=== PATIENT | male | born 1980 | race Caucasian/White ===

== ENCOUNTER 2024-01-01 19:28 | Outpatient (CLI) | payer MEDICAID, SELFPAY | END 2024-01-01 19:29 | disposition home or self-care (01) | LOC: AMB 01-07 11:49 | PROVIDERS: Visit Provider Student in an Organized Health Care Education/Training Program | DX: F15.10 Other stimulant abuse, uncomplicated (principal) | CPT/HCPCS: A0425; A0429 ==

== ENCOUNTER 2024-01-01 19:47 | Emergency (ER) | payer MEDICAID, SELFPAY ==
[2024-01-01 19:58] VITALS: BP 109/81; PULSE 88; RESP 18; TEMP 36.6; O2SAT 96; BMI 31.0
--- NOTE | 2024-01-01 20:06 | ED_ITS ---
HPI - General Adult General Chief complaint: Unspecified Complaint, Adult Stated complaint: Substance abuse Time Seen by Provider: 01/01/24 20:05 History of Present Illness HPI narrative: pt at [place] smoking marijuanna and meth. stated he decided to leave so he started walking down the side of the highway, PD saw him walking in dark and stopped him, ems brought him in. pt denies any self harm or SI . pt states he wants help to get out of the drug life and is open to going to detox. 43-year-old man presenting to the emergency department brought by EMS. Was apparently walking along side of the road and reports to me at least that PD had pulled up alongside and he requested to come to the hospital for detox. This is after nursing has told me prior to me seeing him that was declining blood draw and detox although seems interested now again. He does admit to marijuana and meth denying any other substances. Last used tonight. He is interested in ?crisis bed?. I asked him if he has a place to stay and he is unsure. He has been to detox and appears family was number nkechi. He also reports treatment but can not recall when. He says he sometimes attends meetings. Says he could get a sponsor if he needed one. Generally very agreeable in his answers saying ?yeah?. Says he just needs to quit especially meth. Says this is his last time. Otherwise notes himself to be in usual state of health. No complaint of headaches. No chest pain or shortness of breath. No expressions of self-harm or harm to anybody else. In further conversation/questioning, he endorses being released from intermediate 4 weeks ago. He is from the [facility] originally. When I am examining his mouth he does note that his tongue hurts this would correspond with some ulcerations. He does admit to grinding his teeth as well. Related Data Home Medications Medication Instructions Recorded Confirmed acetaminophen PO 01/01/24 albuterol 90 mcg/actuation aerosol mcg inhalation 01/01/24 inhaler buspirone 30 mg tablet 30 mg PO BID 01/01/24 01/01/24 divalproex 500 mg tablet,extended 1,000 mg PO DAILY 01/01/24 01/01/24 release 24 hr (Depakote ER) folic acid 1 mg tablet 1 mg PO DAILY 01/01/24 01/01/24 olanzapine 20 mg tablet 40 mg PO QHS 01/01/24 01/01/24 omeprazole 20 mg capsule,delayed 20 mg PO DAILY 01/01/24 01/01/24 release propranolol 80 mg capsule,24 80 mg PO DAILY 01/01/24 01/01/24 hr,extended release (Inderal LA) venlafaxine 150 mg 300 mg PO QAM 01/01/24 01/01/24 capsule,extended release 24 hr (Effexor XR) Allergies Allergy/AdvReac Type Severity Reaction Status Date / Time haloperidol [From Haldol] AdvReac Verified 01/01/24 20:14 levetiracetam [From Keppra] AdvReac Verified 01/01/24 20:03 Review of Systems Status of ROS: Reports: 6 or more systems reviewed and unremarkable except as noted in History and below [facility] Medical History Hypertension ?I10 - Essential (primary) hypertension (ICD-10) Cannabis abuse ?F12.10 - Cannabis abuse, uncomplicated (ICD-10) Bipolar 2 disorder ?F31.81 - Bipolar II disorder (ICD-10) Attention deficit disorder of childhood with hyperactivity ?F90.9 - Attention-deficit hyperactivity disorder, unspecified type (ICD-10) Anxiety disorder ?F41.9 - Anxiety disorder, unspecified (ICD-10) Antisocial personality disorder ?F60.2 - Antisocial personality disorder (ICD-10) Amphetamine dependence, episodic ?F15.20 - Other stimulant dependence, uncomplicated (ICD-10) Surgical History No significant past surgical history Social History Smoking Status: Never smoker Second hand tobacco smoke exposure: No How often do you have a drink containing alcohol: never AUDIT-C Alcohol total score: 0 Non-prescribed substance use: marijuana (any form) and amphetamines/methamphetamines Exam Narrative: Exam Narrative: Blood pressure is notably in good range/low. Skin is warm and dry. On done tattoos on his left hand. Oropharynx is sticky. He has some aphthous ulcers around the edge of his tongue. Dentition is ground down consistent with teeth grinding. Head looks to be atraumatic. Cranial nerves 2-12 intact. Pupils are 4 mm and equal. Lungs are clear. Heart in regular rate and rhythm. Abdomen is soft and nontender. Moving all extremities without difficulty. Speaking fluidly. Limited in his responses to questions but not disagreeable in any way. Actually quite pleasant. Agreeable as noted. Well-perfused peripherally. No sores/lesions otherwise. No lower extremity edema. Const: Vital Signs, click to edit/add: Vital Signs - 24 hr 01/01/24 19:58 01/01/24 21:54 Temperature 97.9 F 98.9 F Pulse Rate [Pulse Oximeter] 88 84 Respiratory Rate 18 16 Blood Pressure [Ri ght Upper Arm] 109/81 111/64 Pulse Oximetry 96 97 Oxygen Delivery Me thod Room Air Room Air Documenting provider has reviewed patient's vital signs: yes Course Vital Signs Vital signs: Initial Vital Signs Temperature 97.9 F 01/01/24 19:58 Temperature Source Temporal Artery Scan 01/01/24 19:58 Pulse Rate 88 01/01/24 19:58 Respiratory Rate 18 01/01/24 19:58 Blood Pressure 109/81 01/01/24 19:58 Blood Pressure Mean 90 01/01/24 19:58 Blood Pressure Position Sitting 01/01/24 19:58 Pulse Oximetry 96 01/01/24 19:58 Oxygen Delivery Method Room Air 01/01/24 19:58 Vital Signs Temperature 97.9 F 01/01/24 19:58 Pulse Rate 88 01/01/24 19:58 Respiratory Rate 18 01/01/24 19:58 Blood Pressure 109/81 01/01/24 19:58 Pulse Oximetry 96 01/01/24 19:58 Oxygen Delivery Method Room Air 01/01/24 19:58 Temperature 98.9 F 01/01/24 21:54 Pulse Rate 84 01/01/24 21:54 Respiratory Rate 16 01/01/24 21:54 Blood Pressure 111/64 01/01/24 21:54 Pulse Oximetry 97 01/01/24 21:54 Oxygen Delivery Method Room Air 01/01/24 21:54 Medical Decision Making MDM Narrative Medical decision making narrative: He is interested in detox. Will try to accommodate this. Will do a basic labs corresponding with detox placement. Monitor for any further evident of withdrawal. Urine tox meth positive as expected Been uneventful during time here in the emergency department. Able to obtain permission to admit to [facility]. Pending ambulance transport Supplying with 3 days worth of medications. Lab Data Lab results reviewed: Yes I reviewed the patient's lab results Labs: Lab Results 01/01/24 01/01/24 01/01/24 Range/Units 19:54 19:56 20:13 WBC 10.26 (4.50-11.00) K/uL RBC 4.14 L (4.30-5.90) m/uL Hgb 12.7 L (13.5-17.5) gm/dL Hct 36.7 L (37.0-53.0) % MCV 89 (80-100) fL MCH 31 (26-34) pg MCHC 35 (32-36) gm/dL RDW Coeff of Erik 12.5 (11.5-15.5) % Plt Count 354 (140-440) K/uL Neut % (Auto) 62.6 (42.0-72.0) % Lymph % (Auto) 23.0 (20-44) % Dickenson % (Auto) 12.8 H (0.0-11.0) % Eos % (Auto) 0.9 (0.0-7.0) % Baso % (Auto) 0.5 (0.0-3.0) % Neut # (Auto) 6.43 (1.7-7.0) K/uL Lymph # (Auto) 2.36 (0.90-2.90) K/uL Dickenson # (Auto) 1.30 H (0.00-0.90) K/UL Eos # (Auto) 0.09 (0.00-0.50) K/uL Baso # (Auto) 0.05 (0.00-0.30) K/uL Abs Immat Gran (auto) 0.02 (0.00-0.30) K/uL Imm/Tot Granulo (auto) 0.2 % Sodium 137 (135-149) mmol/L Potassium 3.6 (3.6-5.1) mmol/L Chloride 99 (96-114) mmol/L Carbon Dioxide 30 (20-32) mmol/L Anion Gap 8 (7-15) mEq/L BUN 12 (5-24) mg/dL Creatinine 0.6 (0.5-1.5) mg/dL Estimated Creat Clear 162.02 Estimated GFR 124 ml/min Glucose 91 (60-115) mg/dL Calcium 9.2 (8.4-10.6) mg/dL TSH 3.750 (0.270-4.20) uIU/mL Salicylates < 1.0 L (1.0-10) mg/dL Urine Opiates Screen Negative (Negative) Ur Oxycodone Screen Negative (Negative) Urine Methadone Screen Negative (Negative) Acetaminophen < 10.0 L (10.0-30.0) ug/mL Ur Barbiturates Screen Negative (Negative) U Tricyclic Antidepress Negative (Negative) Ur Phencyclidine Scrn Negative (Negative) Ur Amphetamines Screen POSITIVE A (Negative) U Methamphetamines Scrn POSITIVE A (Negative) U Benzodiazepines Scrn Negative (Negative) Urine Cocaine Screen Negative (Negative) U Marijuana (THC) Screen Negative (Negative) Ur Drug Screen Comment See Note Ethyl Alcohol < 0.01 L (0.01-0.03) % SARS-CoV-2 Ag (Rapid) Negative (Negative) Discharge Plan Discharge Clinical Impression: Active substance abuse, Methamphetamine use Patient Disposition: Xfer Other Condition: Stable Additional Instructions: Best wishes in your efforts toward sobriety. Prescriptions: No Action acetaminophen [Tylenol] PO albuterol 90 mcg/actuation aerosol inhalation buspirone 30 mg tablet 30 mg PO BID divalproex [Depakote ER] 500 mg tablet extended release 24 hr 1,000 mg PO DAILY folic acid 1 mg tablet 1 mg PO DAILY olanzapine 20 mg tablet 40 mg PO QHS omeprazole 20 mg capsule,delayed release(DR/EC) 20 mg PO DAILY propranolol [Inderal LA] 80 mg capsule,extended release 24hr 80 mg PO DAILY venlafaxine [Effexor XR] 150 mg capsule,extended release 24hr 300 mg PO QAM Stand Alone Forms: [employer] Info Instructions
[2024-01-01 20:20] LABS: Basophils Absolute Auto 0.05 K/uL (0.00-0.30); Basophils Percent Auto 0.5 % (0.0-3.0); Eosinophils Absolute Auto 0.09 K/uL (0.00-0.50); Eosinophils Percent Auto 0.9 % (0.0-7.0); Hematocrit 36.7 % (37.0-53.0); Hemoglobin* 12.7 gm/dL (13.5-17.5); Immature Granulocytes Abs Auto 0.02 K/uL (0.00-0.30); Immature Granulocytes Pct Auto 0.2 %; Lymphocytes Absolute Auto 2.36 K/uL (0.90-2.90); Mean Corpuscular HGB Conc 35 gm/dL (32-36); Mean Corpuscular Hemoglobin 31 pg (26-34); Mean Corpuscular Volume 89 fL (80-100); Monocytes Percent Auto 12.8 % (0.0-11.0); Neutrophils Absolute Auto 6.43 K/uL (1.7-7.0); Neutrophils Percent Auto 62.6 % (42.0-72.0); Platelet Count* 354 K/uL (140-440); RDW Coefficient of Variation % 12.5 % (11.5-15.5); Red Blood Count 4.14 m/uL (4.30-5.90); White Blood Count* 10.26 K/uL (4.50-11.00)
[2024-01-01 20:29] LABS: Amphetamine Screen Urine POSITIVE (Negative); Barbiturate Screen Urine Negative (Negative); Benzodiazepines Screen Urine Negative (Negative); Cannabinoid Screen Urine Negative (Negative); Cocaine Screen Urine Negative (Negative); Methadone Screen Urine Negative (Negative); Methamphetamines Screen Urine POSITIVE (Negative); Opiate Screen Urine Negative (Negative); Oxycodone Screen Urine Negative (Negative); Phencyclidine Screen Urine Negative (Negative); Tricyclic Antidepressant Urine Negative (Negative)
[2024-01-01 20:33] LABS: Chloride* 99 mmol/L (96-114); Potassium* 3.6 mmol/L (3.6-5.1); Sodium* 137 mmol/L (135-149)
[2024-01-01 20:36] LABS: Anion Gap 8 mEq/L (7-15); Blood Urea Nitrogen* 12 mg/dL (5-24); Carbon Dioxide* 30 mmol/L (20-32); Creatinine* 0.6 mg/dL (0.5-1.5); Est. Creatinine Clearance* 162.02; Estimated Glomerular Filt Rate 124 ml/min
[2024-01-01 20:37] LABS: SARS Antigen* Negative (Negative)
[2024-01-01 20:37] LABS: Calcium* 9.2 mg/dL (8.4-10.6); Glucose* 91 mg/dL (60-115)
[2024-01-01 20:43] LABS: Acetaminophen* < 10.0 ug/mL (10.0-30.0); Salicylate* < 1.0 mg/dL (1.0-10)
[2024-01-01 20:44] LABS: Slide Review Reflex No
[2024-01-01 21:31] LABS: Ethanol* < 0.01 % (0.01-0.03)
[2024-01-01 21:54] VITALS: BP 111/64; PULSE 84; RESP 16; TEMP 37.2; O2SAT 97
--- NOTE | 2024-01-01 22:02 | ED.NURSE ---
patient pleasant and cooperative, pt very thankful, states he is thankful for giving him another chance to clean his life up. pt cooperative throughout visit.
== END 2024-01-01 22:35 | disposition other institution (70) ==
PROVIDERS: Emergency Provider Family Medicine
DX: F15.120 Other stimulant abuse with intoxication, uncomplicated (principal)
CPT/HCPCS: 36415; 80048; 80143; 80179; 80306; 82077; 84443; 85025; 87426; 99284; A9270

== ENCOUNTER 2024-01-01 22:27 | Outpatient (CLI) | payer MEDICAID, SELFPAY | END 2024-01-01 22:28 | disposition home or self-care (01) | LOC: AMB 01-04 22:19 | PROVIDERS: Visit Provider Family Medicine | DX: F15.10 Other stimulant abuse, uncomplicated (principal) | CPT/HCPCS: A0425; A0428 ==

== ENCOUNTER 2024-03-17 01:49 | Outpatient (CLI) | payer MEDICAID, SELFPAY | END 2024-03-17 01:50 | disposition home or self-care (01) | LOC: AMB 03-20 09:23 | PROVIDERS: Visit Provider Family Medicine | DX: F29 Unspecified psychosis not due to a substance or known physiological condition (principal); F11.10 Opioid abuse, uncomplicated | CPT/HCPCS: A0425; A0429 ==

== ENCOUNTER 2024-03-17 02:08 | Emergency (ER) | payer MEDICAID, SELFPAY ==
[2024-03-17 02:20] VITALS: BP 133/114; PULSE 113; RESP 24; TEMP 36.8; O2SAT 96
--- NOTE | 2024-03-17 04:23 | ED.GENADULT ---
HPI - General Adult General Chief complaint: Unspecified Complaint, Adult Stated complaint: mental health Time Seen by Provider: 03/17/24 03:25 Source: patient and EMS Mode of arrival: EMS History of Present Illness HPI narrative: 44-year-old male presents to the ED for evaluation of public intoxication. EMS was called because he was sleeping in the lim[place], noted to be intoxicated. History of methamphetamine use as well. He was polite and cooperative but his clothes were wet and he happened to be covered in wood ticks. They were concerned for his safety. He admits to heavy alcohol usage and has done so in the past. He is motivated to quit drinking. He assures me that he has a place to live, currently living with an aunt and uncle and there are no conflicts with that arrangement. He says that he was sleeping outside tonight after drinking heavily. He is apologetic regarding being in the emergency department. We were quite busy hand he has been changed into a gown, has eaten a sandwich and is drinking appropriate liquids with no difficulty. He denies abdominal pain, fever, cough, skin irritation or other acute concerns today. He would like to go to detox. He states that his past medical history is essentially benign. Review of the records shows that he has a history of anxiety, mental health disorders. Reports that he is taking his medications as prescribed. Allergies to Haldol and Keppra, unknown reaction. Denies recent surgeries. ROS notable for drug use and intoxication as stated above. He specifically denies any intent of self-harm, paranoia, hallucinations or other abnormality. Related Data Home Medications Medication Instructions Recorded Confirmed acetaminophen PO 01/01/24 albuterol 90 mcg/actuation aerosol mcg inhalation 01/01/24 inhaler buspirone 30 mg tablet 30 mg PO BID 01/01/24 01/01/24 divalproex 500 mg tablet,extended 1,000 mg PO DAILY 01/01/24 01/01/24 release 24 hr (Depakote ER) folic acid 1 mg tablet 1 mg PO DAILY 01/01/24 01/01/24 olanzapine 20 mg tablet 40 mg PO QHS 01/01/24 01/01/24 omeprazole 20 mg capsule,delayed 20 mg PO DAILY 01/01/24 01/01/24 release propranolol 80 mg capsule,24 80 mg PO DAILY 01/01/24 01/01/24 hr,extended release (Inderal LA) venlafaxine 150 mg 300 mg PO QAM 01/01/24 01/01/24 capsule,extended release 24 hr (Effexor XR) Allergies Allergy/AdvReac Type Severity Reaction Status Date / Time haloperidol [From Haldol] AdvReac Verified 01/01/24 20:14 levetiracetam [From Keppra] AdvReac Verified 01/01/24 20:03 PFSH PFS Medical History Hypertension ?I10 - Essential (primary) hypertension (ICD-10) Cannabis abuse ?F12.10 - Cannabis abuse, uncomplicated (ICD-10) Bipolar 2 disorder ?F31.81 - Bipolar II disorder (ICD-10) Attention deficit disorder of childhood with hyperactivity ?F90.9 - Attention-deficit hyperactivity disorder, unspecified type (ICD-10) Anxiety disorder ?F41.9 - Anxiety disorder, unspecified (ICD-10) Antisocial personality disorder ?F60.2 - Antisocial personality disorder (ICD-10) Amphetamine dependence, episodic ?F15.20 - Other stimulant dependence, uncomplicated (ICD-10) Surgical History No significant past surgical history Social History Smoking Status: Never smoker Second hand tobacco smoke exposure: No How often do you have a drink containing alcohol: never AUDIT-C Alcohol total score: 0 Non-prescribed substance use: marijuana (any form) and amphetamines/methamphetamines Exam Const: Vital Signs, click to edit/add: Vital Signs - 24 hr 03/17/24 02:20 Temperature 98.2 F Pulse Rate [Right Pulse Oximeter] 113 H Respiratory Rate 24 Blood Pressure [Ri ght Upper Arm] 133/114 H Pulse Oximetry 96 Oxygen Delivery Me thod Room Air Documenting provider has reviewed patient's vital signs: yes Common normals: no apparent distress and alert General appearance: cooperative Orientation/consciousness: Yes awake Other: Arrives in wet clothing, but it was raining outside. He is covered in wood ticks which we do remove an inspect his skin carefully. HENMT: Common normals: normocephalic and moist oral mucous membranes Head and scalp: normocephalic Face and sinus: normal facial exam Mouth: oral and palatal mucosa normal Throat: posterior oropharynx normal Eye: Common normals: conjunctivae normal General eye: normal appearance of both eyes Conjunctiva: conjunctiva(e) normal Neck & C-Spine: Common normals: no lymphadenopathy General: normal visual inspection Resp: Common normals: normal respiratory effort and clear to auscultation bilaterally Effort & inspection: able to speak in complete sentences Auscultation: clear to auscultation bilaterally Cardio: Common normals: regular rate, regular rhythm, S1 normal heart sound, S2 normal heart sound and no murmurs Rate: regular rate Rhythm: regular rhythm Heart sounds: S1 normal and S2 normal GI: Common normals: Normal to inspection, nondistended, normoactive bowel sounds present, soft to palpation, no hepatosplenomegaly and no masses Palpation: soft and no hepatosplenomegaly Extremity: Other: A couple of picked at scabs with minimal surrounding redness but no bull's eye lesions or signs of active Lyme rash Neuro: Sensorium/orientation: awake and alert Speech: speech normal Gait (neuro): normal gait Motor exam: no tremor noted and no movement abnormalities noted Psych: Attitude: engaged Activity/motor behavior: appropriate eye contact Insight: insight good Judgement: fair Course Course ED Course: Patient without signs of acute psychosis, intoxicated with alcohol. Cooperative with no signs of agitation. Is eating and drinking and willing to go to detox. Bed is available. Will be transferred once we have a chance to get caught up with other patients to [facility]. Will give 200 mg p.o. doxycycline x1 for tick prophylaxis. Vital Signs Vital signs: Initial Vital Signs Temperature 98.2 F 03/17/24 02:20 Temperature Source Temporal Artery Scan 03/17/24 02:20 Pulse Rate 113 H 03/17/24 02:20 Respiratory Rate 24 03/17/24 02:20 Blood Pressure 133/114 H 03/17/24 02:20 Blood Pressure Mean 120 H 03/17/24 02:20 Blood Pressure Position Sitting 03/17/24 02:20 Pulse Oximetry 96 03/17/24 02:20 Oxygen Delivery Method Room Air 03/17/24 02:20 Vital Signs Temperature 98.2 F 03/17/24 02:20 Pulse Rate 113 H 03/17/24 02:20 Respiratory Rate 03/17/24 02:20 Blood Pressure 133/114 H 03/17/24 02:20 Pulse Oximetry 96 03/17/24 02:20 Oxygen Delivery Method Room Air 03/17/24 02:20 Temperature 98.2 F 03/17/24 02:20 Pulse Rate 113 H 03/17/24 02:20 Respiratory Rate 03/17/24 02:20 Blood Pressure 133/114 H 03/17/24 02:20 Pulse Oximetry 96 03/17/24 02:20 Oxygen Delivery Method Room Air 03/17/24 02:20 Discharge Plan Discharge Clinical Impression: Alcohol intoxication Patient Disposition: Xfer Other Condition: Stable Activity Level: No Restrictions Discharge Diet: Regular Prescriptions: No Action acetaminophen [Tylenol] PO albuterol 90 mcg/actuation aerosol inhalation buspirone 30 mg tablet 30 mg PO BID divalproex [Depakote ER] 500 mg tablet extended release 24 hr 1,000 mg PO DAILY folic acid 1 mg tablet 1 mg PO DAILY olanzapine 20 mg tablet 40 mg PO QHS omeprazole 20 mg capsule,delayed release(DR/EC) 20 mg PO DAILY propranolol [Inderal LA] 80 mg capsule,extended release 24hr 80 mg PO DAILY venlafaxine [Effexor XR] 150 mg capsule,extended release 24hr 300 mg PO QAM
[2024-03-17] MEDS: DOXYCYCLINE HYCLATE 100 MG 200 MG PO (05:11)
[2024-03-17 05:31] VITALS: BP 105/80; PULSE 101; RESP 16; TEMP 36.9; O2SAT 97
[2024-03-17 06:06] LABS: Ethanol* < 0.01 % (0.01-0.03)
[2024-03-17 07:01] LABS: Amphetamine Screen Urine POSITIVE (Negative); Barbiturate Screen Urine Negative (Negative); Benzodiazepines Screen Urine Negative (Negative); Cannabinoid Screen Urine POSITIVE (Negative); Cocaine Screen Urine Negative (Negative); Methadone Screen Urine Negative (Negative); Methamphetamines Screen Urine POSITIVE (Negative); Opiate Screen Urine Negative (Negative); Oxycodone Screen Urine Negative (Negative); Phencyclidine Screen Urine Negative (Negative); Tricyclic Antidepressant Urine Negative (Negative)
[2024-03-17 09:19] VITALS: BP 105/73; PULSE 102; RESP 16; TEMP 36.9; O2SAT 98
--- NOTE | 2024-03-18 08:09 | ED.NURSE ---
Spoke with Rakel, patient's sister, who stated she wanted clothing thrown away due to tick exposure.
--- NOTE | 2024-03-18 08:28 | ED.NURSE ---
Phone and shoes found with patient's belongings. These will be set aside and voice mail left for sister, Rakel, to come and pick them up.
== END 2024-03-17 10:30 | disposition other institution (70) ==
PROVIDERS: Emergency Provider Family Medicine
DX: F10.129 Alcohol abuse with intoxication, unspecified (principal)
CPT/HCPCS: 36415; 80306; 82077; 99283; A9270

== ENCOUNTER 2024-03-17 10:20 | Outpatient (CLI) | payer MEDICAID, SELFPAY | END 2024-03-17 10:21 | disposition home or self-care (01) | LOC: AMB 03-20 10:47 | PROVIDERS: Visit Provider Student in an Organized Health Care Education/Training Program | DX: F11.10 Opioid abuse, uncomplicated (principal); R41.82 Altered mental status, unspecified | CPT/HCPCS: A0425; A0429 ==

== ENCOUNTER 2024-09-28 18:24 | Emergency (ER) | payer MEDICAID, SELFPAY ==
[2024-09-28 18:31] VITALS: BP 143/104; PULSE 103; RESP 20; TEMP 36.1; O2SAT 98
--- NOTE | 2024-09-28 19:40 | ED.GENADULT ---
HPI - General Adult General Chief complaint: Unspecified Complaint, Adult Stated complaint: Suicidal Ideation Time Seen by Provider: 09/28/24 18:33 History of Present Illness HPI narrative: This 44-year-old male is brought in by [facility] ambulance. EMS states that he is suicidal however the patient himself denies this. He went to his father's home hoping to stay there and his father would not let him stay there. This made him sad. His sister also would not accommodate him so he is currently homeless. He states that he slept outside last night. He did use meth and fed a means and marijuana recently and knows that this was not a good plan for him. He was hospitalized in the [facility] about a week ago. He does not have a job and has no place to live. He denies using any other street drugs or alcohol. He states that he is to be taking propranolol, Zyprexa, and Depakote but has not taken these medicines for the past few days. He states that he has the medicines but has neglected taking them. He is pleasant and cooperative currently and denies intent to harm himself or others. Related Data Home Medications ?Medication ?Instructions ?Recorded ?Confirmed acetaminophen PO 01/01/24 albuterol 90 mcg/actuation aerosol mcg inhalation 01/01/24 inhaler buspirone 30 mg tablet 30 mg PO BID 01/01/24 01/01/24 divalproex 500 mg tablet,extended 1,000 mg PO DAILY 01/01/24 01/01/24 release 24 hr (Depakote ER) folic acid 1 mg tablet 1 mg PO DAILY 01/01/24 01/01/24 olanzapine 20 mg tablet 40 mg PO QHS 01/01/24 01/01/24 omeprazole 20 mg capsule,delayed 20 mg PO DAILY 01/01/24 01/01/24 release propranolol 80 mg capsule,24 80 mg PO DAILY 01/01/24 01/01/24 hr,extended release (Inderal LA) venlafaxine 150 mg 300 mg PO QAM 01/01/24 01/01/24 capsule,extended release 24 hr (Effexor XR) Allergies Allergy/AdvReac Type Severity Reaction Status Date / Time haloperidol (From Haldol) AdvReac Verified 01/01/24 20:14 levetiracetam (From Keppra) AdvReac Verified 01/01/24 20:03 Review of Systems Status of ROS: Reports: 10 or more systems reviewed and unremarkable except as noted in History and below Narrative: Constitutional: No fevers, no weight gain or loss. Eyes: No discharge. No vision changes. HENT: No congestion, no sore throat, no ear pain. Cardiovascular: No chest pain, no palpitations. Respiratory: No shortness of breath, no wheezes, no cough. Gastrointestinal: No abdominal pain, no vomiting, no diarrhea. Genitourinary: No dysuria, no hematuria. Musculoskeletal: Normal range of motion. Skin: No rashes, no pruritis. Neurological: No dizziness, weakness, sensory change, speech change. Endo/Heme/Allergies: No bruising or bleeding. No polydipsia. Pysch: He denies suicidality. He admits to using meth and fed a means and marijuana. All other systems reviewed and are negative. [facility] Medical History Hypertension ?I10 - Essential (primary) hypertension (ICD-10) Cannabis abuse ?F12.10 - Cannabis abuse, uncomplicated (ICD-10) Bipolar 2 disorder ?F31.81 - Bipolar II disorder (ICD-10) Attention deficit disorder of childhood with hyperactivity ?F90.9 - Attention-deficit hyperactivity disorder, unspecified type (ICD-10) Anxiety disorder ?F41.9 - Anxiety disorder, unspecified (ICD-10) Antisocial personality disorder ?F60.2 - Antisocial personality disorder (ICD-10) Amphetamine dependence, episodic ?F15.20 - Other stimulant dependence, uncomplicated (ICD-10) Surgical History No significant past surgical history Social History Smoking Status: Never smoker Second hand tobacco smoke exposure: No How often do you have a drink containing alcohol: monthly or less AUDIT-C Alcohol total score: 1 Non-prescribed substance use: marijuana (any form) and amphetamines/methamphetamines service: No Exam Narrative: Exam Narrative: Constitutional: Well-developed, well-nourished, no acute distress. HEENT: Normocephalic, atraumatic. Neck: Normal range of motion. Nontender. Supple. Heart: Regular. No murmurs. Tachycardia. Intact distal pulses. Lungs: Clear to auscultation. No chest discomfort. No wheezes, rhonchi, or rales. Abdomen: Normal bowel sounds. Nontender. No rebound tenderness. Genitalia: Deferred. Back: No midline tenderness. Normal range of motion. Extremities: Normal range of motion. No injury. Skin: Intact. No rash. Warm. No erythema or pallor. Neurologic: No altered sensation. No weakness. Alert and oriented. Psychiatric: No suicidality. No anxiety or depression. No insomnia. Nursing notes and vitals signs are reviewed. Const: Vital Signs, click to edit/add: Vital Signs - 24 hr 09/28/24 18:31 Temperature 97 F L Pulse Rate [Pulse Oximeter] 103 H Respiratory Rate 20 Blood Pressure [Ri ght Upper Arm] 143/104 H Pulse Oximetry 98 Oxygen Delivery Me thod Room Air Course Vital Signs Vital signs: Initial Vital Signs Temperature 97 F L 09/28/24 18:31 Temperature Source Temporal Artery Scan 09/28/24 18:31 Pulse Rate 103 H 09/28/24 18:31 Respiratory Rate 20 09/28/24 18:31 Blood Pressure 143/104 H 09/28/24 18:31 Blood Pressure Mean 117 H 09/28/24 18:31 Blood Pressure Position Sitting 09/28/24 18:31 Pulse Oximetry 98 09/28/24 18:31 Oxygen Delivery Method Room Air 09/28/24 18:31 Vital Signs Temperature 97 F L 09/28/24 18:31 Pulse Rate 103 H 09/28/24 18:31 Respiratory Rate 20 09/28/24 18:31 Blood Pressure 143/104 H 09/28/24 18:31 Pulse Oximetry 98 09/28/24 18:31 Oxygen Delivery Method Room Air 09/28/24 18:31 Temperature 97 F L 09/28/24 18:31 Pulse Rate 103 H 09/28/24 18:31 Respiratory Rate 20 09/28/24 18:31 Blood Pressure 143/104 H 09/28/24 18:31 Pulse Oximetry 98 09/28/24 18:31 Oxygen Delivery Method Room Air 09/28/24 18:31 Medical Decision Making MDM Narrative Medical decision making narrative: This patient comes in by ambulance for mental health evaluation. He is denying any suicidal attempt and does not have any history of such. He does admit to taking methamphetamines and marijuana recently. A mental health assessment did occur and the patient is not in need of a hold or inpatient evaluation and treatment. I did provide doses of his current medications. He states that he does have his meds and just has not been taking them. He did make contact with his father who agrees to take him home. Discharge Plan Discharge Clinical Impression: Methamphetamine abuse Patient Disposition: Home, Self-Care Condition: Stable Additional Instructions: Continue current medications as prescribed. Avoid using street drugs. Follow-up with primary physician for ongoing management. Prescriptions: No Action acetaminophen [Tylenol] PO albuterol 90 mcg/actuation aerosol inhalation buspirone 30 mg tablet 30 mg PO BID divalproex [Depakote ER] 500 mg tablet extended release 24 hr 1,000 mg PO DAILY folic acid 1 mg tablet 1 mg PO DAILY olanzapine 20 mg tablet 40 mg PO QHS omeprazole 20 mg capsule,delayed release(DR/EC) 20 mg PO DAILY propranolol [Inderal LA] 80 mg capsule,extended release 24hr 80 mg PO DAILY venlafaxine [Effexor XR] 150 mg capsule,extended release 24hr 300 mg PO QAM Follow Up/Referrals: Provider,Not a Local [Primary Care Provider] - Stand Alone Forms: [employer] Info Instructions
[2024-09-28] MEDS: buPROPion XL 150 MG TABLET PO (20:52)
[2024-09-28] MEDS: BUSPIRONE 10 MG TABLET 30 MG PO (20:52)
[2024-09-28] MEDS: OLANZapine 5 MG TAB.RAPDIS 10 MG PO (20:52)
[2024-09-28] MEDS: VENLAFAXINE ER 75 MG CAPSULE 150 MG PO (20:52)
[2024-09-28] MEDS: DIVALPROEX DELAYED RELEASE 250 MG TABLET 1000 MG PO (20:52)
[2024-09-28] MEDS: OLANZapine 5 MG TAB.RAPDIS PO (20:52)
== END 2024-09-28 21:57 | disposition home or self-care (01) ==
PROVIDERS: Emergency Provider Emergency Medicine Emergency Medical Services
DX: F15.10 Other stimulant abuse, uncomplicated (principal)
CPT/HCPCS: 99283; 99284; A9270